=== PATIENT | female | born 1980 | race Caucasian/White ===

== ENCOUNTER → 2018-05-12 | Outpatient (CLI) | payer BC ==
[2015-10-29 16:17] VITALS: BP 107/61
[2018-05-12 15:35] LABS: HEMATOCRIT 37.8 % (37.0-47.0); MEAN PLATELET VOLUME 10.1 fl (7.4-10.4); RED BLOOD COUNT 3.97 M/mm3 (4.10-5.30); RED CELL DISTRIBUTION WIDTH 13.3 % (11.5-14.5); WHITE BLOOD COUNT 9.6 K/mm3 (4.8-10.8)
[2018-05-12 15:51] LABS: ALBUMIN 3.9 g/dL (3.5-5.0); BUN/CREATININE RATIO 15.6 (6.0-26.0); CALCIUM 8.9 mg/dL (8.4-10.2); POTASSIUM 3.9 mmol/L (3.6-5.0); TOTAL BILIRUBIN 0.2 mg/dL (0.2-1.3); TOTAL PROTEIN 7.5 g/dL (6.3-8.2)
== END ==
LOC: RAD 15:10
PROVIDERS: Family Medicine
DX: M25.532 Pain in left wrist (principal); R53.83 Other fatigue

== ENCOUNTER → 2018-05-16 | Outpatient (CLI) | payer BC ==
[2015-10-29 16:17] VITALS: BP 107/61
== END ==
LOC: LAB 07:26
DX: R53.83 Other fatigue (principal); D64.9 Anemia, unspecified; D58.2 Other hemoglobinopathies

== ENCOUNTER → 2018-05-18 | Outpatient (CLI) | payer BC ==
[2015-10-29 16:17] VITALS: BP 107/61
== END ==
LOC: LAB 12:57
DX: R73.09 Other abnormal glucose (principal); R53.83 Other fatigue

== ENCOUNTER → 2019-02-14 | Outpatient (CLI) | payer BC ==
[2015-10-29 16:17] VITALS: BP 107/61
[2019-02-14 18:45] LABS: ALBUMIN 4.2 g/dL (3.5-5.0); CALCIUM 9.3 mg/dL (8.4-10.2); TOTAL BILIRUBIN 0.3 mg/dL (0.2-1.3); TOTAL PROTEIN 7.4 g/dL (6.3-8.2)
[2019-02-14 19:51] LABS: EOS # 0.2 (0.04-0.40); EOS % 1.6 % (1.0-5.0); HEMATOCRIT 36.9 % (37.0-47.0); HEMOGLOBIN 11.6 g/dL (12.5-16.0); LYMPH# 3.3 (1.50-4.00); MEAN CELL VOLUME 95 fl (78-100); MEAN CORPUSCULAR HEMOGLOBIN 30 pg (27-31); MEAN CORPUSCULAR HGB CONC 31 g/dL (33-37); MEAN PLATELET VOLUME 10.5 fl (7.4-10.4); MONO # 0.6 (0.20-0.80); NEU # 7.4 (1.40-6.50); PLATELET COUNT 326 K/mm3 (130-400); RED BLOOD COUNT 3.88 M/mm3 (4.10-5.30); RED CELL DISTRIBUTION WIDTH 13.7 % (11.5-14.5); WHITE BLOOD COUNT 11.5 K/mm3 (4.8-10.8)
[2019-02-14 21:36] LABS: URINE APPEARANCE CLEAR; URINE BILIRUBIN NEGATIVE (NEGATIVE); URINE BLOOD NEGATIVE (NEGATIVE); URINE COLOR YELLOW; URINE GLUCOSE NEGATIVE (NEGATIVE); URINE KETONE NEGATIVE (NEGATIVE); URINE LEUKOCYTE ESTERASE NEGATIVE (NEGATIVE); URINE NITRATE NEGATIVE (NEGATIVE); URINE PROTEIN(semi-quant) NEGATIVE (NEGATIVE); URINE UROBILINOGEN NORMAL (NORMAL); URINE WBC 0-1 /hpf (0-3)
== END ==
LOC: LAB 17:28
PROVIDERS: Nurse Practitioner
DX: R10.9 Unspecified abdominal pain (principal)

== ENCOUNTER → 2019-02-15 | Outpatient (CLI) | payer BC ==
[2015-10-29 16:17] VITALS: BP 107/61
== END ==
LOC: RAD 08:05
DX: K76.0 Fatty (change of) liver, not elsewhere classified (principal); R10.9 Unspecified abdominal pain; R16.0 Hepatomegaly, not elsewhere classified
CPT/HCPCS: Q9965; Q9967

== ENCOUNTER → 2020-04-09 | Outpatient (CLI) | payer BC ==
[2015-10-29 16:17] VITALS: BP 107/61
[2020-04-09 08:36] LABS: ALBUMIN 3.9 g/dL (3.5-5.0); POTASSIUM 4.3 mmol/L (3.5-5.1)
[2020-04-09 08:37] LABS: CALCIUM 9.3 mg/dL (8.3-10.5)
[2020-04-09 08:39] LABS: TOTAL PROTEIN 7.1 g/dL (6.4-8.3)
[2020-04-09 08:41] LABS: TOTAL BILIRUBIN 0.2 mg/dL (0.2-1.2)
[2020-04-09 09:08] LABS: HEMATOCRIT 37.2 % (37.0-47.0); HEMOGLOBIN 11.8 g/dL (12.5-16.0); MEAN PLATELET VOLUME 10.6 fl (7.4-10.4); RED BLOOD COUNT 4.03 M/mm3 (4.10-5.30); RED CELL DISTRIBUTION WIDTH 13.6 % (11.5-14.5); WHITE BLOOD COUNT 8.6 K/mm3 (4.8-10.8)
[2020-04-10 04:40] LABS: FOLLICLE STIMULATING HORMONE 4.2 mIU/mL (()); LUTENIZING HORMONE 3.8 mIU/mL (()); PROGESTERONE <0.5 ng/mL (())
== END ==
LOC: MAMMO 07:57
PROVIDERS: Obstetrics & Gynecology
DX: Z12.31 Encounter for screening mammogram for malignant neoplasm of breast (principal)

== ENCOUNTER → 2021-06-08 | Outpatient (CLI) | payer BC ==
[2021-06-08 10:05] LABS: BASO # 0.03 (0.02-0.10); EOS # 0.14 (0.04-0.40); EOS % 1.4 % (1.0-5.0); HEMATOCRIT 38.6 % (37.0-47.0); HEMOGLOBIN 11.8 g/dL (12.5-16.0); LYMPH# 2.88 (1.50-4.00); MEAN CELL VOLUME 89 fl (78-100); MEAN CORPUSCULAR HEMOGLOBIN 27 pg (27-31); MEAN CORPUSCULAR HGB CONC 31 g/dL (33-37); MEAN PLATELET VOLUME 9.8 fl (7.4-10.4); MONO # 0.43 (0.20-0.80); NEU # 6.75 (1.40-6.50); PLATELET COUNT 329 K/mm3 (130-400); RED BLOOD COUNT 4.33 M/mm3 (4.10-5.30); RED CELL DISTRIBUTION WIDTH 15.7 % (11.5-14.5); WHITE BLOOD COUNT 10.3 K/mm3 (4.8-10.8)
[2021-06-08 10:17] LABS: POTASSIUM 4.1 mmol/L (3.5-5.1)
[2021-06-08 10:18] LABS: ALBUMIN 4.4 g/dL (3.5-5.0)
[2021-06-08 10:19] LABS: CALCIUM 9.8 mg/dL (8.3-10.5)
[2021-06-08 10:20] LABS: TOTAL PROTEIN 8.1 g/dL (6.4-8.3)
[2021-06-08 10:22] LABS: TOTAL BILIRUBIN 0.3 mg/dL (0.2-1.2)
== END ==
LOC: LAB 09:37
PROVIDERS: Family Medicine
DX: Z00.00 Encounter for general adult medical examination without abnormal findings (principal); E55.9 Vitamin D deficiency, unspecified

== ENCOUNTER → 2021-11-23 | Outpatient (CLI) | payer BC ==
[2021-11-23 09:19] LABS: BASO # 0.02 K/mm3 (0.02-0.10); EOS # 0.12 K/mm3 (0.04-0.40); EOS % 1.9 % (1.0-5.0); HEMATOCRIT 37.7 % (37.0-47.0); LYMPH# 1.15 K/mm3 (1.50-4.00); MEAN CELL VOLUME 90 fl (78-100); MEAN CORPUSCULAR HEMOGLOBIN 29 pg (27-31); MEAN CORPUSCULAR HGB CONC 32 g/dL (33-37); MEAN PLATELET VOLUME 9.7 fl (7.4-10.4); MONO # 0.37 K/mm3 (0.20-0.80); NEU # 4.66 K/mm3 (1.40-6.50); PLATELET COUNT 276 K/mm3 (130-400); RED BLOOD COUNT 4.21 M/mm3 (4.10-5.30); RED CELL DISTRIBUTION WIDTH 14.4 % (11.5-14.5); WHITE BLOOD COUNT 6.3 K/mm3 (4.8-10.8)
[2021-11-23 09:21] LABS: POTASSIUM 3.8 mmol/L (3.5-5.1)
[2021-11-23 09:22] LABS: CALCIUM 9.5 mg/dL (8.3-10.5)
[2021-11-23 09:23] LABS: TOTAL PROTEIN 7.5 g/dL (6.4-8.3)
[2021-11-23 09:25] LABS: TOTAL BILIRUBIN 0.3 mg/dL (0.2-1.2)
== END ==
LOC: LAB 08:55
PROVIDERS: Family Medicine
DX: Z00.00 Encounter for general adult medical examination without abnormal findings (principal); E55.9 Vitamin D deficiency, unspecified; E78.5 Hyperlipidemia, unspecified

== ENCOUNTER → 2022-01-13 | Outpatient (CLI) | payer BC | LOC: RAD 16:57 | DX: M79.671 Pain in right foot (principal) ==

== ENCOUNTER → 2022-12-16 | Outpatient (CLI) | payer BC ==
[2022-12-16 07:48] LABS: BASO # 0.03 K/mm3 (0.02-0.10); EOS # 0.15 K/mm3 (0.04-0.40); EOS % 1.4 % (1.0-5.0); HEMOGLOBIN 12.8 g/dL (12.5-16.0); LYMPH# 3.22 K/mm3 (1.50-4.00); MEAN CELL VOLUME 95 fl (78-100); MEAN CORPUSCULAR HEMOGLOBIN 30 pg (27-31); MEAN CORPUSCULAR HGB CONC 32 g/dL (33-37); MEAN PLATELET VOLUME 9.9 fl (7.4-10.4); MONO # 0.46 K/mm3 (0.20-0.80); NEU # 6.82 K/mm3 (1.40-6.50); PLATELET COUNT 317 K/mm3 (130-400); RED BLOOD COUNT 4.21 M/mm3 (4.10-5.30); RED CELL DISTRIBUTION WIDTH 13.5 % (11.5-14.5); WHITE BLOOD COUNT 10.7 K/mm3 (4.8-10.8)
[2022-12-16 07:55] LABS: POTASSIUM 4.2 mmol/L (3.5-5.1)
[2022-12-16 07:56] LABS: ALBUMIN 4.1 g/dL (3.5-5.0)
[2022-12-16 07:57] LABS: CALCIUM 9.8 mg/dL (8.3-10.5)
[2022-12-16 07:58] LABS: TOTAL PROTEIN 7.3 g/dL (6.4-8.3)
[2022-12-16 08:00] LABS: TOTAL BILIRUBIN 0.3 mg/dL (0.2-1.2)
== END ==
LOC: LAB 07:31
PROVIDERS: Family Medicine
DX: Z00.00 Encounter for general adult medical examination without abnormal findings (principal); E78.5 Hyperlipidemia, unspecified; J30.9 Allergic rhinitis, unspecified; K21.9 Gastro-esophageal reflux disease without esophagitis; G44.229 Chronic tension-type headache, not intractable; E66.01 Morbid (severe) obesity due to excess calories; M72.2 Plantar fascial fibromatosis; E55.9 Vitamin D deficiency, unspecified; J01.90 Acute sinusitis, unspecified; R06.83 Snoring

== ENCOUNTER → 2023-11-24 | Outpatient (CLI) | payer BC | LOC: LAB 17:39 | DX: R19.7 Diarrhea, unspecified (principal) ==

== ENCOUNTER → 2023-11-25 | Outpatient (CLI) | payer BC ==
[2023-11-25 07:47] LABS: BASO # 0.02 K/mm3 (0.02-0.10); EOS # 0.14 K/mm3 (0.04-0.40); EOS % 1.4 % (1.0-5.0); HEMATOCRIT 37.9 % (37.0-47.0); HEMOGLOBIN 11.9 g/dL (12.5-16.0); LYMPH# 2.81 K/mm3 (1.50-4.00); MEAN CELL VOLUME 97 fl (78-100); MEAN CORPUSCULAR HEMOGLOBIN 30 pg (27-31); MEAN CORPUSCULAR HGB CONC 31 g/dL (33-37); MEAN PLATELET VOLUME 10.1 fl (7.4-10.4); MONO # 0.47 K/mm3 (0.20-0.80); NEU # 6.29 K/mm3 (1.40-6.50); PLATELET COUNT 262 K/mm3 (130-400); RED BLOOD COUNT 3.91 M/mm3 (4.10-5.30); RED CELL DISTRIBUTION WIDTH 13.8 % (11.5-14.5); WHITE BLOOD COUNT 9.8 K/mm3 (4.8-10.8)
[2023-11-25 07:52] LABS: CALCIUM 9.4 mg/dL (8.3-10.5)
[2023-11-25 07:53] LABS: TOTAL PROTEIN 6.8 g/dL (6.4-8.3)
[2023-11-25 07:55] LABS: TOTAL BILIRUBIN 0.3 mg/dL (0.2-1.2)
== END ==
LOC: LAB 07:26 → RAD 07:26 → EDSTATUS 15:50
PROVIDERS: Nurse Practitioner
DX: K76.0 Fatty (change of) liver, not elsewhere classified (principal); R16.2 Hepatomegaly with splenomegaly, not elsewhere classified; R19.7 Diarrhea, unspecified; R79.82 Elevated C-reactive protein (CRP)
CPT/HCPCS: Q9967

== ENCOUNTER → 2023-11-26 | Outpatient (CLI) | payer BC ==
[2023-11-26 19:07] LABS: HEPATITIS C ANTIBODY Negative (Negative)
== END ==
LOC: LAB 09:33
PROVIDERS: Nurse Practitioner
DX: R16.2 Hepatomegaly with splenomegaly, not elsewhere classified (principal)

== ENCOUNTER → 2024-04-11 | Outpatient (CLI) | payer BC ==
[~2024-04-11] MED LIST: AMOXICILLIN AND1 TA2 PO; OMEPRAZOLE40 MG PO; PROPRANOLOL HCL40 M2 PO
== END ==
LOC: EDSTATUS 13:09 → LAB 13:09
DX: Z12.31 Encounter for screening mammogram for malignant neoplasm of breast (principal)

== ENCOUNTER → 2025-02-08 | Outpatient (CLI) | payer BC | LOC: RAD 13:54 | DX: M47.812 Spondylosis without myelopathy or radiculopathy, cervical region (principal); M47.816 Spondylosis without myelopathy or radiculopathy, lumbar region; M43.16 Spondylolisthesis, lumbar region ==